=== PATIENT | female | born 2005 | race Caucasian/White ===

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

== ENCOUNTER 2023-04-02 19:36 | Emergency (ER) | payer OTHER ==
[2023-04-02 19:51] VITALS: BP 107/71; PULSE 81; RESP 16; TEMP 97.6; BMI 31.6
[2023-04-02] MEDS ORDERED: ONDANSETRON 4 MG TABLET PO ONE ×2 (21:00→21:07)
== END 2023-04-02 21:14 | disposition home or self-care (01) ==
LOC: JER 19:36 → JERFT 19:36
DX: R00.2 Palpitations (principal); R11.0 Nausea
CPT/HCPCS: 93005; 93010; 99283-25

== ENCOUNTER 2023-05-05 13:26 | Emergency (ER) | payer OTHER ==
[2023-05-05 13:41] VITALS: BP 93/70; PULSE 63; RESP 20; TEMP 98.2; BMI 31.6
[2023-05-05] MEDS ORDERED: ACETAMINOPHEN 325 MG TABLET (FP) PO ONE (14:47)
[2023-05-05] MEDS ORDERED: IBUPROFEN 400 MG TABLET (FP) PO ONE ×2 (14:47→14:51)
[2023-05-05] MEDS ORDERED: ACETAMINOPHEN 325 MG TABLET (FP) ONE (14:51)
== END 2023-05-05 15:44 | disposition home or self-care (01) ==
LOC: JERFT 13:26
DX: M54.50 Low back pain, unspecified (principal); M79.601 Pain in right arm
CPT/HCPCS: 99283-25

== ENCOUNTER 2023-07-22 10:58 | Emergency (ER) | payer OTHER ==
[2023-07-22 11:12] VITALS: BMI 31.8
[2023-07-22 12:17] LABS: EPI CELLS >36 /uL (0-25.1); HCG,QUALITATIVE URINE Negative; HYALINE CASTS 0 /uL (0-3.1); URINE APPEARANCE CLEAR; URINE BACTERIA 1270 /uL (0-1359); URINE BILIRUBIN NEGATIVE (NEGATIVE); URINE COLOR YELLOW; URINE GLUCOSE (UA) NEGATIVE (NEGATIVE); URINE KETONE NEGATIVE (NEGATIVE); URINE LEUK ESTERASE 2+ (NEGATIVE); URINE NITRITE NEGATIVE (NEGATIVE); URINE PROTEIN NEGATIVE (NEGATIVE); URINE RBC 30 /uL (0-23.9); URINE UROBILINOGEN 0.2 mg/dL (0.2-1.0); URINE WBC 33 /uL (0-25.8)
[2023-07-22 15:42] VITALS: BP 122/76; PULSE 75; RESP 17; TEMP 98
== END 2023-07-22 15:39 | disposition home or self-care (01) ==
LOC: JER 10:58
DX: N93.9 Abnormal uterine and vaginal bleeding, unspecified (principal); N39.0 Urinary tract infection, site not specified; N76.0 Acute vaginitis; R10.32 Left lower quadrant pain
CPT/HCPCS: 36415; 76830-TC; 81003; 84703; 87086; 87491; 87591; 99284-25

== ENCOUNTER 2023-12-10 09:30 | Emergency (ER) | payer OTHER ==
[2023-12-10 09:36] VITALS: BMI 32.5
[2023-12-10 10:32] LABS: BASO % 0.5 % (0-2.0); EOS % 1.3 % (0-4.5); HEMATOCRIT 41.2 % (32.4-45.2); HEMOGLOBIN 13.8 GM/dL (10.7-15.3); LYMPH % 17.1 % (8-40); MCH 27.6 pg (25.7-33.7); MCHC 33.6 g/dl (32.0-36.0); MEAN CELL VOLUME 82.3 fl (80-96); MEAN PLT VOLUME 8.8 fl (7.5-11.1); NEUT % 76.1 % (42.8-82.8); PLATELET COUNT 216 10^3/uL (134-434); RBC 5.01 M/mm3 (3.60-5.2); WHITE BLOOD COUNT 7.7 K/mm3 (4.0-10.0)
[2023-12-10 10:47] LABS: ACTIVATED PTT 33.4 SECONDS (25.2-36.5); INR 0.99 (0.83-1.09); PROTHROMBIN TIME (PATIENT) 11.5 SEC (9.7-13.0)
[2023-12-10 11:33] LABS: POTASSIUM 3.9 mmol/L (3.5-5.1)
[2023-12-10 11:35] LABS: BLOOD UREA NITROGEN 15.2 mg/dL (7-18); CALCIUM 9.1 mg/dL (8.5-10.1)
[2023-12-10 11:38] LABS: CREATININE 0.7 mg/dL (0.55-1.3)
[2023-12-10 11:40] LABS: BILIRUBIN,TOTAL 0.4 mg/dL (0.2-1); TOT PROT 7.4 g/dl (6.4-8.2)
[2023-12-10] MEDS ORDERED: KETOROLAC TROMETHAMINE 15 MG/ML VIAL ONE (13:18)
[2023-12-10] MEDS: KETOROLAC TROMETHAMINE 15 MG/ML VIAL IVPUSH ONE (13:23)
[2023-12-10 13:49] VITALS: BP 111/75; PULSE 82; RESP 18; TEMP 98.3
[2023-12-10 14:06] LABS: EPI CELLS >36 /uL (0-25.1); HYALINE CASTS 3 /uL (0-3.1); URINE APPEARANCE CLOUDY; URINE BACTERIA 3499 /uL (0-1359); URINE BILIRUBIN NEGATIVE (NEGATIVE); URINE COLOR YELLOW; URINE GLUCOSE (UA) NEGATIVE (NEGATIVE); URINE KETONE NEGATIVE (NEGATIVE); URINE LEUK ESTERASE 2+ (NEGATIVE); URINE NITRITE NEGATIVE (NEGATIVE); URINE PROTEIN NEGATIVE (NEGATIVE); URINE RBC 50 /uL (0-23.9); URINE UROBILINOGEN 0.2 mg/dL (0.2-1.0); URINE WBC 382 /uL (0-25.8)
== END 2023-12-10 13:57 | disposition home or self-care (01) ==
LOC: JER 09:30
PROC: 3E0333Z Introduction of Anti-inflammatory into Peripheral Vein, Percutaneous Approach (ICD-10-PCS; principal; 2023-12-10)
DX: M25.512 Pain in left shoulder (principal); R07.81 Pleurodynia; R10.9 Unspecified abdominal pain; S40.012A Contusion of left shoulder, initial encounter; N39.0 Urinary tract infection, site not specified; V47.5XXA Car driver injured in collision with fixed or stationary object in traffic accident, initial encounter; Y92.412 Parkway as the place of occurrence of the external cause
CPT/HCPCS: 36415; 70450-TC; 71260-TC; 72125-TC; 73030-TC-LT-FY; 74177-TC; 76604; 76705-TC; 80053; 81003; 84703; 85025; 85610; 85730; 86850; 86900; 86901; 87086; 87491; 87591; 87661; 93308; 99285-25

== ENCOUNTER 2024-01-19 15:50 | Emergency (ER) | payer OTHER ==
[2024-01-19 16:12] VITALS: BP 105/73; PULSE 90; RESP 18; TEMP 98.5; BMI 34.9
[2024-01-19 18:28] LABS: PH,URINE 5.5 (5.0-8.0); URINE APPEARANCE CLEAR; URINE BILIRUBIN NEGATIVE (NEGATIVE); URINE COLOR YELLOW; URINE GLUCOSE (UA) NEGATIVE (NEGATIVE); URINE KETONE TRACE (NEGATIVE); URINE LEUK ESTERASE NEGATIVE (NEGATIVE); URINE NITRITE NEGATIVE (NEGATIVE); URINE PROTEIN NEGATIVE (NEGATIVE)
[2024-01-19] MEDS ORDERED: ACETAMINOPHEN INJECTION 100 ML IVPB ONE (18:33)
[2024-01-19] MEDS: ACETAMINOPHEN 1000 MG/100 ML BAG IVPB ONE (18:37)
[2024-01-19 18:50] LABS: BASO % 0.2 % (0-2.0); HEMATOCRIT 42.6 % (32.4-45.2); HEMOGLOBIN 14.3 GM/dL (10.7-15.3); LYMPH % 28.8 % (8-40); MCH 27.3 pg (25.7-33.7); MCHC 33.5 g/dl (32.0-36.0); MEAN CELL VOLUME 81.6 fl (80-96); MEAN PLT VOLUME 8.8 fl (7.5-11.1); MONO % 5.9 % (3.8-10.2); NEUT % 64.1 % (42.8-82.8); PLATELET COUNT 234 10^3/uL (134-434); RBC 5.23 M/mm3 (3.60-5.2); RDW 14.1 % (11.6-15.6); WHITE BLOOD COUNT 10.8 K/mm3 (4.0-10.0)
[2024-01-19 19:17] LABS: POTASSIUM 3.9 mmol/L (3.5-5.1)
[2024-01-19 19:19] LABS: BLOOD UREA NITROGEN 8.9 mg/dL (7-18)
[2024-01-19 19:23] LABS: CREATININE 0.7 mg/dL (0.55-1.3)
[2024-01-19 19:24] LABS: BILIRUBIN,TOTAL 0.3 mg/dL (0.2-1); TOT PROT 7.5 g/dl (6.4-8.2)
[2024-01-19] MEDS ORDERED: metroNIDAZOLE 250 MG TABLET ONE (21:28)
[2024-01-19] MEDS ORDERED: AZITHROMYCIN 500 MG TABLET ONE (21:28)
[2024-01-19] MEDS ORDERED: CEFTRIAXONE 1 GM/50 ML BAG ONE (21:29)
[2024-01-19] MEDS: AZITHROMYCIN 500 MG TABLET PO ONE (21:37)
[2024-01-19] MEDS: metroNIDAZOLE 500 MG TABLET PO ONE (21:37)
[2024-01-19] MEDS: CEFTRIAXONE 1 GM in DEXTROSE 5%-WATER - 100 ML IVPB ONE (21:37)
== END 2024-01-19 21:58 | disposition home or self-care (01) ==
LOC: JER 15:50
PROC: 3E03329 Introduction of Other Anti-infective into Peripheral Vein, Percutaneous Approach (ICD-10-PCS; principal; 2024-01-19)
PROC: 3E033NZ Introduction of Analgesics, Hypnotics, Sedatives into Peripheral Vein, Percutaneous Approach (ICD-10-PCS; 2024-01-19)
DX: O26.891 Other specified pregnancy related conditions, first trimester (principal); N89.8 Other specified noninflammatory disorders of vagina; R10.11 Right upper quadrant pain; Z3A.01 Less than 8 weeks gestation of pregnancy
CPT/HCPCS: 36415; 76817-TC; 80053; 81003; 84702; 85025; 87070; 87077; 87086; 87205; 87491; 87591; 87661; 99284-25; J0131

== ENCOUNTER 2024-03-06 16:47 | Emergency (ER) | payer OTHER ==
[2024-03-06 17:20] VITALS: BP 111/76; PULSE 92; RESP 18; TEMP 98.1; BMI 36.1
== END 2024-03-06 19:21 | disposition home or self-care (01) ==
LOC: JER 16:47
DX: O26.892 Other specified pregnancy related conditions, second trimester (principal); R11.0 Nausea; Z3A.14 14 weeks gestation of pregnancy
CPT/HCPCS: 76815; 99284-25